=== PATIENT | female | born 1945 | race Caucasian/White ===

== ENCOUNTER 2020-05-08 13:50 | Outpatient (CLI) | payer MEDICARE, OTHER, SELFPAY ==
--- NOTE | 2020-05-08 14:12 | XR_ITS ---
WS: [id number] SCREENING DEXA SCAN [employer] CLINICAL INFORMATION: OSTEOPOROSIS COMPARISON: April 25, 2018 FINDINGS: The L1-L4 bone mineral density measures 0.681 g/cm2. This corresponds to a T score score of -4.2 and Z score of -2.3. Left femoral neck bone mineral density measures 0.719 g/cm2. This corresponds to a T score of -2.3 an d Z score of -0.6. Right femoral neck bone mineral density measures 0.699 g/cm2. This corresponds to a T score -2.5of an d Z score of -0.7. Mean femoral neck bone mineral density measures 0.709 g/cm2. This corresponds to a T score of -2.4 an d Z score of -0.6. XR/XR DEXA axial skeleton* [id number] IMPRESSION: Osteoporosis Patient's FRAX calculated 10 year probability for major osteoporotic fracture i s 32.7 % and osteoporotic hip fracture is 13.3%.
== END 2020-05-08 13:51 | disposition home or self-care (01) ==
PROVIDERS: Family Provider Family Medicine; PCP Family Medicine; Visit Provider Family Medicine
DX: M81.0 Age-related osteoporosis without current pathological fracture (principal)
CPT/HCPCS: 77080

== ENCOUNTER 2021-09-01 08:53 | Outpatient (CLI) | payer MEDICARE, OTHER, SELFPAY ==
[2021-09-01 09:12] VITALS: BP 131/67; PULSE 78; RESP 18; TEMP 37.1; O2SAT 98
[2021-09-01] MEDS: denosumab 60 mg SDV SUBCUT (09:23)
[2021-09-01 09:36] VITALS: BP 138/75; PULSE 65; RESP 18; TEMP 37.1; O2SAT 99
== END 2021-09-01 08:54 | disposition home or self-care (01) ==
LOC: ONCMED 08:54
PROVIDERS: PCP Family Medicine; Referring Provider Family Medicine; Visit Provider Family Medicine
DX: M81.0 Age-related osteoporosis without current pathological fracture (principal)
CPT/HCPCS: 96372; J0897

== ENCOUNTER 2022-03-11 12:43 | Outpatient (CLI) | payer MEDICARE, OTHER, SELFPAY ==
[2022-03-11 13:10] VITALS: BP 129/67; PULSE 82; RESP 18; TEMP 37; O2SAT 98
[2022-03-11] MEDS: denosumab 60 mg SDV SUBCUT (13:18)
[2022-03-11 13:23] VITALS: BP 111/63; PULSE 73; RESP 18; TEMP 36.9; O2SAT 97
== END 2022-03-11 12:44 | disposition home or self-care (01) ==
PROVIDERS: PCP Family Medicine; Visit Provider Family Medicine
DX: M81.0 Age-related osteoporosis without current pathological fracture (principal)
CPT/HCPCS: 96372; J0897

== ENCOUNTER 2022-07-08 12:35 | Outpatient (CLI) | payer MEDICARE, OTHER, SELFPAY ==
--- NOTE | 2022-07-08 12:41 | XR_ITS ---
WS: [id number] SCREENING DEXA SCAN [employer] CLINICAL INFORMATION: OSTEOPOROSIS COMPARISON: None. FINDINGS: The L1-L4 bone mineral density measures 0.710 g/cm2. This corresponds to a T score score of -3.9 and Z score of -2.1. Left femoral neck bone mineral density measures 0.762 g/cm2. This corresponds to a T score of -2.0 an d Z score of -0.2. Right femoral neck bone mineral density measures 0.727 g/cm2. This corresponds to a T score -2.2of an d Z score of -0.4. Mean femoral neck bone mineral density measures 0.745 g/cm2. This corresponds to a T score of -2.1 an d Z score of -0.3. XR/XR DEXA axial skeleton* [id number] IMPRESSION: Osteoporosis lumbar spine. Osteopenia femoral necks. Patient's FRAX calculated 10 year probability for major osteoporotic fracture is 32.0 % and osteoporotic hip fracture is 12.5%. Since 2020, lumbar spine bone mineral density has increased 4.3%. Femoral neck bone mineral density has increased 5.1%.
== END 2022-07-08 12:36 | disposition home or self-care (01) ==
LOC: RAD 12:35
PROVIDERS: PCP Family Medicine; Visit Provider Family Medicine
DX: M81.0 Age-related osteoporosis without current pathological fracture (principal); M85.88 Other specified disorders of bone density and structure, other site
CPT/HCPCS: 77080

== ENCOUNTER 2022-09-16 09:43 | Outpatient (CLI) | payer MEDICARE, OTHER, SELFPAY ==
[2022-09-16 10:09] VITALS: BP 141/90; PULSE 69; RESP 18; TEMP 36.7; O2SAT 99
[2022-09-16] MEDS: denosumab 60 mg SDV SUBCUT (10:30)
[2022-09-16 10:33] VITALS: BP 138/87; PULSE 70; RESP 18; TEMP 37.3; O2SAT 96
== END 2022-09-16 09:44 | disposition home or self-care (01) ==
PROVIDERS: PCP Family Medicine; Visit Provider Family Medicine
DX: M81.0 Age-related osteoporosis without current pathological fracture (principal)
CPT/HCPCS: 96372; J0897

== ENCOUNTER 2022-09-18 20:10 | Emergency (ER) | payer MEDICARE, OTHER, SELFPAY ==
[2022-09-18 20:15] VITALS: BP 150/88; PULSE 72; RESP 16; TEMP 36.7; O2SAT 99
--- NOTE | 2022-09-18 20:49 | ED_ITS ---
HPI - Chest Pain General: Chief Complaint: Chest Pain Stated Complaint: chest pain Time Seen by Provider: 09/18/22 20:49 History of Present Illness: Ms. Hair is a 77-year-old lady without reported past medical history presenting to the emergency department for left- sided chest pain. She reports onset of symptoms approximately 9 hours ago with initially vague discomfort however it became more pronounced and pleuritic about 3 hours ago. She endorses worse pain with inspiration and sharp stabbing nature. She was in the garden but denies any sort of particular provoking event or activity that she can think of. She denies trauma or skin lesions. Denies associated respiratory symptoms. No other specific changes in health, exacerbating, or alleviating factors identified. Onset (ago): hour(s) Timing of current episode: constant Prior episodes: No Onset: during exertion Pain location: left chest Severity: moderate Quality: sharp Exacerbating factors: inspiration Associated symptoms: Reports no associated symptoms Review of Systems General: Reports: 10 or more systems reviewed and unremarkable except in HPI and below PFSH ED PFSH: Medical History (Updated 10/03/22 @ 19:00 by David Neville MD) No significant past medical history Surgical History (Updated 10/03/22 @ 19:00 by David Neville MD) No significant past surgical history Physical Exam Const: COMMON NORMALS: alert GENERAL APPEARANCE: cooperative and well developed HENMT: COMMON NORMALS: normocephalic and atraumatic HEAD & SCALP: normocephalic and atraumatic Eye: COMMON NORMALS: conjunctivae normal CONJUNCTIVA: Yes conjunctivae normal SCLERA: sclerae normal Neck/C-Spine: COMMON NORMALS: supple GENERAL: Yes trachea midline Resp: COMMON NORMALS: clear to auscultation bilaterally EFFORT & INSPECTION: Yes able to speak in complete sentences AUSCULTATION: clear to auscultation bilaterally Cardio: COMMON NORMALS: regular rate and regular rhythm RATE: regular rate RHYTHM: regular rhythm GI: COMMON NORMALS: Soft to palpation PALPATION: Yes Soft to palpation and No Tenderness to palpation present (GI) Extremity: GENERAL: Yes normal exam except as noted and No edema Neuro: COMMON NORMALS: moves all extremities SENSORIUM/ORIENTATION: Yes alert and No Orientation impaired Psych: COMMON NORMALS: mental status grossly normal and Normal thought process present THOUGHT PROCESS: Normal thought process present Course Vital Signs: Vital signs: Vital Signs Temperature 98.1 F 09/18/22 20:15 Pulse Rate 72 09/18/22 20:15 Respiratory Rate 16 09/18/22 20:15 Blood Pressure 150/88 09/18/22 20:15 Pulse Oximetry 99 09/18/22 20:15 Oxygen Delivery Me thod 09/18/22 20:15 MDM - Chest Pain Medical Decision Making 77-year-old lady presenting with pleuritic chest pain. Patient is nontoxic on exam. EKG notable for sinus rhythm with normal axis and intervals, nonspecific ST segment abnormality, no STEMI. Labs similar to prior without significant hematologic or metabolic abnormality. Chest x-ray with mild left basilar infiltrate. No evidence of rib fracture. Patient treated with aspirin and Toradol with improvement in symptoms. Most likely etiology of patient's symptoms is unclear however it may be related to pneumonia. I discussed possible other etiologies including cardiac etiologies. Patient is comfortable foregoing inpatient management at this time. The results of ED evaluation were discussed with the patient including prescr iptions and/or symptomatic cares (if applicable) including appropriate and responsible use, followup plan, and return precautions. The patient verbalized understanding and felt safe for discharge. Medical Records I reviewed the patient's medical records. Lab Data I reviewed the patient's lab results. 09/18/22 21:05 09/18/22 21:05 Radiology Impressions Chest X-Ray 09/18/22 20:58 IMPRESSION: 1. Mildly hyperaerated lungs consistent with deep inspiratory effort vs reactive airway disease vs mild COPD . 2. Mild left basilar atelectasis and/or pneumonia. Ribs X-Ray 09/18/22 20:58 IMPRESSION: No acute findings. Laboratory Results WBC 7.9 10^3/uL (4.0-10.0) 09/18/22 21:05 RBC 4.44 10^6/uL (4.1-5.3) 09/18/22 21:05 Hgb 13.7 g/dL (11.5-15.3) 09/18/22 21:05 Hct 42.6 % (37.0-47.0) 09/18/22 21:05 MCV 95.9 fl (81-99) 09/18/22 21:05 MCH 30.9 pg (28.0-34.0) 09/18/22 21:05 MCHC 32.2 g/dL (30.0-36.0) 09/18/22 21:05 RDW 12.8 % (12.1-15.1) 09/18/22 21:05 Plt Count 294 10^3/cmm (130-400) 09/18/22 21:05 MPV 10.4 fL (7.4-10.4) 09/18/22 21:05 Neut % (Auto) 60.9 % 09/18/22 21:05 Lymph % (Auto) 24.3 % 09/18/22 21:05 [place] % (Auto) 10.2 % 09/18/22 21:05 Eos % (Auto) 3.6 % 09/18/22 21:05 Baso % (Auto) 0.6 % 09/18/22 21:05 Neut # (Auto) 4.79 10^3/uL (1.8-7.7) 09/18/22 21:05 Lymph # (Auto) 1.9 10^3/uL (0.8-4.8) 09/18/22 21:05 [place] # (Auto) 0.8 10^3/uL (0.2-0.9) 09/18/22 21:05 Eos # (Auto) 0.3 10^3/uL (0.0-0.8) 09/18/22 21:05 Baso # (Auto) 0.1 10^3/uL (0.0-0.1) 09/18/22 21:05 Nucleated RBC % (auto) 0 % 09/18/22 21:05 Nucleated RBCs # 0.0 /100WBC 09/18/22 21:05 Sodium 139 mmol/L (136-145) 09/18/22 21:05 Potassium 3.9 mmol/L (3.5-5.1) 09/18/22 21:05 Chloride 102 mmol/L (98-107) 09/18/22 21:05 Carbon Dioxide 27 mmol/L (22-29) 09/18/22 21:05 Anion Gap 13.9 (5-19) 09/18/22 21:05 BUN 17 mg/dL (8-23) 09/18/22 21:05 Creatinine 0.6 mg/dL (0.5-0.9) 09/18/22 21:05 GFR Calculation Not Reportable 09/18/22 21:05 Glucose 97 mg/dL (65-115) 09/18/22 21:05 Calculated Osmolality 289 mOsm/kg (285-295) 09/18/22 21:05 Calcium 10.1 mg/dL (8.5-10.5) 09/18/22 21:05 Total Bilirubin 0.2 mg/dL (0.15-1.2) 09/18/22 21:05 AST 19 U/L (0-32) 09/18/22 21:05 ALT 21 U/L (0-33) 09/18/22 21:05 Alkaline Phosphatase 85 U/L (35-105) 09/18/22 21:05 Troponin T Baseline 10 ng/L (0-10) 09/18/22 21:05 NT-Pro-B Natriuret Pep 96 pg/mL (0-450) 09/18/22 21:05 Total Protein 7.0 g/dL (6.6-8.7) 09/18/22 21:05 Albumin 4.3 g/dL (3.5-5.2) 09/18/22 21:05 Globulin 2.7 g/dL (1.3-4.6) 09/18/22 21:05 Discharge Plan Discharge Patient Disposition: Home Clinical Impression: Atypical chest pain, Pneumonia Condition: Stable Prescriptions: New amoxicillin-pot clavulanate 875-125 mg tablet 1 tab PO BID Qty: 20 0RF Discharge Orders: Discharge ED (Routine); Ordered 09/18/22 Ordered By: David Neville Referrals: Abel Lyles MD [Primary Care Provider] - Discharge Diet: Usual diet Discharge Activity: Resume usual activity Patient Instructions: Chest Pain (ED), Pneumonia (ED) Activity Restrictions/Additional Instructions: Thank you for visiting the emergency department. You were seen and evaluated for chest pain. The exact cause your symptoms is unclear though may be related to pneumonia which is demonstrated on x-ray. I will prescribe antibiotics. You may use [id number] medications such as acetaminophen and ibuprofen for pain however please do not exceed the daily recommended dosage as listed on the packaging and please keep in mind that many namebrand medications contain the same active ingredients. Please avoid these medications if previously instructed to do so by another physician due to other underlying medical condition. Please follow-up with your primary care provider. Return to the emergency department for worsening symptoms or anything else that you are concerned about and feel needs emergency department evaluation. Coding Level of Care Code ED Behavioral Modification Assistant for Carson Newberry
--- NOTE | 2022-09-18 20:58 | ECG_ITS ---
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 Measurements Intervals [place] Rate: 63 P: 58 [place]: 152 QRS: 43 QRSD: 80 T: 44 QT: 384 QTc: 393 Interpretive Statements SINUS RHYTHM POSSIBLE LEFT ATRIAL ENLARGEMENT [-0.1mV P-WAVE IN V1/V2] SEPTAL MYOCARDIAL INFARCTION , OF INDETERMINATE AGE [40+ ms Q WAVE IN V1/V2] No previous ECG available for comparison Electronically Signed On 09-19-2022 12:16:44 SADDLE STITCH OPERATOR by Justus Cool M.D. [email or web address]
--- NOTE | 2022-09-18 20:58 | XRR_ITS ---
PROCEDURE INFORMATION: Exam: XR Chest Exam date and time: 09/18/2022 9:09 PM Age: 77 years old Clinical indication: Chest wall pain; Additional info: Left lower cp TECHNIQUE: Imaging protocol: Radiologic exam of the chest. Views: 1 view. COMPARISON: No relevant prior studies available. FINDINGS: Lungs: Mildly hyperaerated lungs consistent with deep inspiratory effort vs reactive airway disease vs mild COPD . Mild left basilar atelectasis and/or pneumonia. Pleural spaces: Unremarkable. No pleural effusion. No pneumothorax. Heart/Mediastinum: Unremarkable. No cardiomegaly. Bones/joints: Unremarkable. XR/XR chest 1V portable [id number] IMPRESSION: 1. Mildly hyperaerated lungs consistent with deep inspiratory effort vs reactive airway disease vs mild COPD . 2. Mild left basilar atelectasis and/or pneumonia.
--- NOTE | 2022-09-18 20:58 | XRR_ITS ---
PROCEDURE INFORMATION: Exam: XR Left Ribs Exam date and time: 09/18/2022 9:12 PM Age: 77 years old Clinical indication: Chest wall pain; Left; Additional info: Left mid/lower rib lateral pain, no injury TECHNIQUE: Imaging protocol: Radiologic exam of the left ribs. Views: 2 views. COMPARISON: CR (CHEST, ) 09/18/2022 9:09 PM FINDINGS: Bones/joints: Mild left glenohumeral primary osteoarthritis. Soft tissues: Normal. XR/XR ribs LT 2V* [id number] IMPRESSION: No acute findings.
[2022-09-18] MEDS: aspirin 81 mg Chew Tablet 324 MG PO (21:16)
[2022-09-18] MEDS: ketorolac 30 mg/mL INJ 15 MG IVP (21:16)
[2022-09-18 21:21] LABS: Basophils # 0.1 10^3/uL (0.0-0.1); Basophils % 0.6 %; Eosinophils # 0.3 10^3/uL (0.0-0.8); Eosinophils % 3.6 %; Hematocrit 42.6 % (37.0-47.0); Hemoglobin 13.7 g/dL (11.5-15.3); Lymphocytes # 1.9 10^3/uL (0.8-4.8); Lymphocytes % 24.3 %; Mean Corpuscular HGB Conc 32.2 g/dL (30.0-36.0); Mean Corpuscular Hemoglobin 30.9 pg (28.0-34.0); Mean Corpuscular Volume 95.9 fl (81-99); Mean Platelet Volume 10.4 fL (7.4-10.4); Monocytes # 0.8 10^3/uL (0.2-0.9); Monocytes % 10.2 %; Neutrophils # 4.79 10^3/uL (1.8-7.7); Neutrophils % 60.9 %; Nucleated Red Blood Cells % 0 %; Platelet Count 294 10^3/cmm (130-400); Red Blood Count 4.44 10^6/uL (4.1-5.3); Red Cell Distribution Width 12.8 % (12.1-15.1); White Blood Count 7.9 10^3/uL (4.0-10.0)
[2022-09-18 21:44] LABS: Troponin(5th) Baseline 10 ng/L (0-10)
[2022-09-18 21:46] LABS: Alanine Aminotransferase 21 U/L (0-33); Albumin Level 4.3 g/dL (3.5-5.2); Alkaline Phosphatase 85 U/L (35-105); Anion Gap 13.9 (5-19); Aspartate Amino Transferase 19 U/L (0-32); Blood Urea Nitrogen 17 mg/dL (8-23); Calcium 10.1 mg/dL (8.5-10.5); Carbon Dioxide 27 mmol/L (22-29); Chloride 102 mmol/L (98-107); Creatinine Clr Calc Pharmacy 54.1742; Globulin 2.7 g/dL (1.3-4.6); Glucose 97 mg/dL (65-115); Osmolality Calculated 289 mOsm/kg (285-295); Potassium 3.9 mmol/L (3.5-5.1); Sodium 139 mmol/L (136-145); Total Bilirubin 0.2 mg/dL (0.15-1.2)
[2022-09-18 22:52] LABS: NT Pro B Type Natriuretic Pept 96 pg/mL (0-450)
== END 2022-09-18 23:25 | disposition home or self-care (01) ==
PROVIDERS: Emergency Provider Emergency Medicine; PCP Family Medicine
DX: R07.89 Other chest pain (principal); J18.9 Pneumonia, unspecified organism
CPT/HCPCS: 71045; 71100; 80053; 83880; 84484; 85025; 93005; 96374; 99285; J1885

== ENCOUNTER 2023-03-23 09:16 | Oncology outpatient (recurring) (ONCR) | payer MEDICARE, OTHER, SELFPAY ==
[2023-03-23] MEDS: denosumab 60 mg SDV SUBCUT (10:24)
[2023-03-23 10:30] VITALS: BP 133/59; PULSE 70; RESP 16; TEMP 36.8; O2SAT 96
== END 2023-03-25 23:59 | disposition home or self-care (01) ==
LOC: ONCMED 09:17
PROVIDERS: PCP Family Medicine; Visit Provider Family Medicine
DX: M81.0 Age-related osteoporosis without current pathological fracture (principal)
CPT/HCPCS: 96402; J0897

== ENCOUNTER 2023-11-10 08:35 | Oncology outpatient (recurring) (ONCR) | payer MEDICARE, OTHER, SELFPAY ==
[2023-11-10 08:50] VITALS: BP 145/73; PULSE 62; RESP 16; TEMP 37.1; O2SAT 99
[2023-11-10] MEDS: denosumab 60 mg SDV SUBCUT (08:50)
== END 2023-11-23 23:59 | disposition home or self-care (01) ==
PROVIDERS: PCP Family Medicine; Visit Provider Family Medicine
DX: M81.0 Age-related osteoporosis without current pathological fracture (principal); Z53.9 Procedure and treatment not carried out, unspecified reason
CPT/HCPCS: 96372; J0897

== ENCOUNTER 2024-08-08 13:24 | Outpatient (CLI) | payer MEDICARE, OTHER, SELFPAY ==
--- NOTE | 2024-08-08 13:33 | XR_ITS ---
WS: [id number] SCREENING DEXA SCAN [employer] CLINICAL INFORMATION: OSTEOPOROSIS COMPARISON: 2021 FINDINGS: The L1-L4 bone mineral density measures 0.682 g/cm2. This corresponds to a T score score of -4.1 and Z score of -2.2. Left femoral neck bone mineral density measures 0.741 g/cm2. This corresponds to a T score of -2.1 an d Z score of -0.2. Right femoral neck bone mineral density measures 0.722 g/cm2. This corresponds to a T score -2.3of an d Z score of -0.3. Mean femoral neck bone mineral density measures 0.731 g/cm2. This corresponds to a T score of -2.2 an d Z score of -0.3. XR/XR DEXA axial skeleton* [id number] IMPRESSION: Osteoporosis lumbar spine. Osteopenia femoral necks. Patient's FRAX calculated 10 year probability for major osteoporotic fracture i s 23.9% and osteoporotic hip fracture is 9.9%. Bone mineral density lumbar spine decreased -3.9% bone mineral density femoral necks decreased -1.9%
== END 2024-08-08 13:25 | disposition home or self-care (01) ==
LOC: RAD 13:27
PROVIDERS: PCP Family Medicine; Visit Provider Family Medicine
DX: M81.0 Age-related osteoporosis without current pathological fracture (principal); M85.852 Other specified disorders of bone density and structure, left thigh; M85.851 Other specified disorders of bone density and structure, right thigh
CPT/HCPCS: 77080

== ENCOUNTER 2025-06-25 06:00 | Oncology outpatient (recurring) (ONCR) | payer MEDICARE, OTHER, SELFPAY | END 2025-07-25 23:59 | disposition home or self-care (01) | LOC: ONCMED 07-24 12:07 | PROVIDERS: PCP Family Medicine; Visit Provider Family Medicine | DX: Z53.9 Procedure and treatment not carried out, unspecified reason (principal) ==